=== PATIENT | male | born 1975 | race African-American/Black ===

== ENCOUNTER 2017-08-28 09:26 | Emergency (ER) | payer MEDICAID, MEDICARE, OTHER ==
[~2017-08-28] VITALS: Ht 195.6 cm; Wt 132.0 kg
[2017-08-28 09:36] VITALS: BP 137/77
== END 2017-08-28 15:55 | disposition left against medical advice (07) ==
LOC: ER 09:32
DX: R06.02 Shortness of breath (principal); Z53.21 Procedure and treatment not carried out due to patient leaving prior to being seen by health care provider

== ENCOUNTER 2017-09-25 13:13 | Emergency (ER) | payer MEDICARE ==
[~2017-09-25] VITALS: Ht 195.6 cm; Wt 129.0 kg
[2017-09-25 14:18] VITALS: BP 151/81
[2017-09-25] MEDS ORDERED: KETOROLAC 60MG/2ML VIAL IM ONE (18:45)
== END 2017-09-25 18:54 | disposition home or self-care (01) ==
LOC: ER 14:42
DX: B35.3 Tinea pedis (principal); F17.200 Nicotine dependence, unspecified, uncomplicated; J45.909 Unspecified asthma, uncomplicated; F12.10 Cannabis abuse, uncomplicated; R56.9 Unspecified convulsions; Z90.49 Acquired absence of other specified parts of digestive tract
CPT/HCPCS: 96372; 99283; J1885

== ENCOUNTER 2018-07-10 18:39 | Emergency (ER) | payer MEDICAID, MEDICARE ==
[~2018-07-10] VITALS: Ht 195.6 cm; Wt 111.0 kg
[2018-07-10 18:45] VITALS: BP 114/68
[2018-07-10] MEDS ORDERED: KETOROLAC 30MG/ML VIAL IM ONE (22:45)
== END 2018-07-10 23:14 | disposition left against medical advice (07) ==
LOC: ER 18:39
DX: M54.5 Low back pain (principal); I10 Essential (primary) hypertension; I50.9 Heart failure, unspecified; F31.9 Bipolar disorder, unspecified; R56.9 Unspecified convulsions; F17.200 Nicotine dependence, unspecified, uncomplicated
CPT/HCPCS: 99283; J1885